=== PATIENT | male | born 1940 | race Caucasian/White ===

== ENCOUNTER → 2016-11-09 | Outpatient (CLI) | payer OTHER, BC | LOC: FIMAGING 09:24 | PROVIDERS: ATTEND Surgery | DX: K21.0 Gastro-esophageal reflux disease with esophagitis (principal) ==

== ENCOUNTER 2017-06-26 16:22 | Observation (INO) | payer OTHER, BC ==
[2017-07-10] MEDS ORDERED: BUPIVACAINE 0.5% 30 ML SDV ONE (06:34)
[2017-07-10] MEDS ORDERED: cefOXitin SODIUM 2 GM in STERILE WATER INJ 21 ML IV ONE (07:27)
[2017-07-10] MEDS ORDERED: fentaNYL 100 MCG/2 ML INJ ONE ×3 (07:28→10:17)
--- NOTE | 2017-07-10 07:28 | PDHPUP ---
History & Physical Update H&P update statement: This history and physical update is based on an assessment of the patient which was completed after admission or registration (within 24 hours), but prior to the surgery/procedure. H&P update: H&P reviewed & patient examined, no change in patient's condition since H&P completed
[2017-07-10] MEDS ORDERED: LR 1,000 ML IV ONE (07:29)
[2017-07-10] MEDS ORDERED: PROPOFOL 200 MG/20 ML VIAL ONE (07:29)
[2017-07-10] MEDS ORDERED: ROCURONIUM 50 MG/5 ML VIAL ONE ×2 (07:30→08:17)
[2017-07-10] MEDS ORDERED: DEXAMETHASONE 4 MG/ML VIAL ONE (07:30)
[2017-07-10] MEDS ORDERED: LIDOCAINE 2% 5 ML SDV ONE (07:30)
[2017-07-10] MEDS ORDERED: ONDANSETRON 4 MG/2 ML VIAL ONE ×2 (07:31→10:24)
--- NOTE | 2017-07-10 07:32 | PDANEPAE ---
ANE Past Medical History - Cardiovascular History Hx Hypertension: No Hx Arrhythmias: No Hx Chest Pain: No Hx Coronary Artery / Peripheral Vascular Disease: No Hx CHF / Valvular Disease: No Hx Palpitations: No - Pulmonary History Hx COPD: No Hx Asthma/Reactive Airway Disease: Yes Hx Recent Upper Respiratory Infection: No Hx Oxygen in Use at Home: No Hx Sleep Apnea: No Sleep Apnea Screening Result - Last Documented: Negative Pulmonary History Comment: exercise and pollutants trigger asthma - Neurologic History Hx Cerebrovascular Accident: No Hx Seizures: No Hx Dementia: No - Endocrine History Hx Diabetes: No - Renal History Hx Renal Disorders: No - Liver History Hx Hepatic Disorders: No - Neurological & Psychiatric Hx Hx Neurological and Psychiatric Disorders: No - Cancer History Hx Cancer: Yes Cancer History Comment: prostate - Congenital Disorder History Hx Congenital Disorders: No - GI History Hx Gastrointestinal Disorders: Yes Gastrointestinal History Comment: reflux - Other Health History Other Health History: none - Chronic Pain History Chronic Pain: No - Surgical History Prior Surgeries: none ANE Review of Systems Review of Systems: - Exercise capacity METS (RN): 4 METS ANE Patient History - Allergies Allergies/Adverse Reactions: No Known Allergies Allergy (Unverified 06/15/17 11:18) - Home Medications Home Medications: Acetaminophen [Tylenol 325mg (*)] 325 mg PO DAILY PRN 06/15/17 [Last Taken 07/03] Budesonide/Formoterol Fumarate [Symbicort 80-4.5 Mcg Inhaler] 2 puffs IH DAILY PRN 06/15/17 [Last Taken 07/10/17 05:00] C/E/Zn/Cu/OM3/DHA/EPA/LUT/ZEAX [Preservision Areds 2 Softgel] 1 each PO BID [Last Taken 07/03/17] Carboxymethylcellulose 1% [Refresh Celluvisc (*)] 1 drop EACHEYE DAILY PRN 06/15 [Last Taken 07/10/17] Cholecalciferol Vit D3 [Vitamin D3 (*)] 1,000 units PO DAILY 06/15/17 [Last Taken 07/03/17] Cyanocobalamin [Vitamin B12 (*)] 1,000 mcg PO DAILY 06/15/17 [Last Taken ] Melatonin [Melatonin 3 MG (*)] 3 mg PO HS 06/15/17 [Last Taken 07/09/17] Methimazole [Tapazole 5MG (*)] 5 mg PO DAILY 06/15/17 [Last Taken 07/10/17 05:00 ] Mirabegron [Myrbetriq] 50 mg PO DAILY14 06/15/17 [Last Taken 07/09/17] Omeprazole 40 mg PO DAILY 06/15/17 [Last Taken 07/10/17 05:00] Tamsulosin HCl [Flomax 0.4 MG (*)] 0.4 mg PO DAILY 06/15/17 [Last Taken 07/09/17 ] Loratadine [Claritin 10 mg] 10 mg PO DAILY PRN 07/10/17 [Last Taken 07/09/17] - NPO status NPO Since - Liquids (Date): 07/09/17 NPO Since - Liquids (Time): 21:00 NPO Since - Solids (Date): 07/09/17 NPO Since - Solids (Time): 19:00 - Anes Hx Anes Hx: no prior problems - Smoking Hx Smoking Status: Former smoker - Family Anes Hx Family Hx Anesthesia Complications: none ANE Labs/Vital Signs - Vital Signs Blood Pressure: 126/89 Heart Rate: 68 Respiratory Rate: 16 O2 Sat (%): 97 Height: 172.72 cm Weight: 67.132 kg ANE Physical Exam - Airway Neck exam: FROM Mallampati Score: Class 1 Mouth exam: normal dental/mouth exam - Pulmonary Pulmonary: no respiratory distress, no rales or rhonchi, clear to auscultation - Cardiovascular Cardiovascular: regular rate and rhythym, no murmur, rub, or gallop - ASA Status ASA Status: II ANE Anesthesia Plan Anesthesia Plan: general endotracheal anesthesia
[2017-07-10] MEDS ORDERED: LIDOCAINE 2% JELLY 5 ML TUBE ONE (07:40)
[2017-07-10] MEDS ORDERED: SURGIFLO MATRIX KIT WITH THROMBIN 8 ML TP ONE (09:24)
[2017-07-10] MEDS ORDERED: PHENYLEPHRINE HCL 100 MCG/ML SYR ONE (09:27)
[2017-07-10] MEDS ORDERED: SUGAMMADEX SODIUM 200 MG/2 ML VIAL IVP ONE (09:27)
[2017-07-10] MEDS ORDERED: MEPERIDINE 25 MG/0.5 ML AMP IVP PRN (09:39)
[2017-07-10] MEDS ORDERED: DEXAMETHASONE 4 MG/ML VIAL IVP PRN (09:39)
[2017-07-10] MEDS ORDERED: PROMETHAZINE HCL 25 MG/ML INJ IVP PRN (09:39)
[2017-07-10] MEDS ORDERED: NALOXONE HCL 0.4 MG/ML INJ IVP PRN (09:39)
[2017-07-10] MEDS ORDERED: LR 500 ML IV PRN (09:39)
[2017-07-10] MEDS ORDERED: ONDANSETRON 4 MG/2 ML VIAL IVP PRN ×2 (09:39→10:04)
--- NOTE | 2017-07-10 10:06 | POSTOPPROG ---
Post Op Note Date of Operation: 07/10/17 Surgeon: Kimo Lake Residential Installer: Dr. Dupree Anesthesiologist: Dr. Colbert Anesthesia: GET(General Endotracheal) Pre-op Diagnosis: GERD Post-op Diagnosis: GERD Procedure: Robotic fundoplication/HH repair Inf/Abcess present in the surg proc area at time of surgery?: No EBL: 50-100
--- NOTE | 2017-07-10 10:11 | POSTANESTH ---
Post Anesthetic Evaluation Cardiovascular Status: Similar to Pre-Op Cond Respiratory Status: Normal, Stable, Similar to Pre-op Cond. Level of Consciousness/Mental Status: Can Participate in Eval, Alert and Oriented Pain Control: Adequate, Prn Tx Ordered Nausea/Vomiting Control: Adequate, Prn Tx Ordered Complications Possibly Related to Anesthesia: None Noted
[2017-07-10] MEDS: fentaNYL 100 MCG/2 ML INJ IVP PRN ×3 (10:19→10:48)
[2017-07-10] MEDS ORDERED: PROMETHAZINE HCL 25 MG/ML INJ ONE (11:09)
--- NOTE | 2017-07-10 12:14 | GOP ---
[f rep st] OPERATIVE REPORT DATE OF OPERATION: 07/10/2017 SURGEON: Jong Lake MD OCCUPATIONAL THERAPY ASSISTANT: Stacey Dupree MD, whose presence was requested by me and medically necessary for the safe and timely completion of the case. ANESTHESIA: General endotracheal anesthesia. ANESTHESIOLOGIST: Matt Colbert MD PREOPERATIVE DIAGNOSIS: Gastroesophageal reflux disease. POSTOPERATIVE DIAGNOSIS: Gastroesophageal reflux disease. PROCEDURE PERFORMED: 1. Da Giovany robotic Remy fundoplication and hiatal hernia repair. 2. Hiatal hernia repair. FINDINGS: The patient had partial fundoplication posteriorly. The patient had a small to moderate hiatal hernia. ESTIMATED BLOOD LOSS: 50 cc INDICATIONS: This is a 76-year-old male with a history of reflux. Risks and benefits of the procedure were discussed with the patient's family and their questions were answered and they wished to proceed. DESCRIPTION OF PROCEDURE: The patient was in the supine position initially. After the induction of adequate general endotracheal anesthesia, the patient was moved to the modified lithotomy position. The patient was then prepped and draped in the standard surgical fashion. Marcaine 0.5% was injected throughout the supraumbilical area for local anesthesia. An 8-mm incision was made and the abdominal wall was elevated. A Veress needle was inserted and after noting proper pressures, the abdomen was insufflated with carbon dioxide. An 8-mm trocar was placed and a camera followed. There was no apparent damage from trocar placement. Four more ports were placed, three 8-mm ports in the upper abdomen and one 5-mm port in the right mid abdomen. These were all placed under direct vision after injecting 0.5% Marcaine for local anesthesia. The robot was then docked without difficulty. Robotic instruments were then used to perform the dissection. The Harmonic scalpel was used to take down the gastrohepatic ligament. Dissection was then carried over the esophagus exposing the right ranjana. The dissection proceeded laterally and the superior portion of the esophagus and the left ranjana were exposed. The vagus nerves were seen and preserved throughout the entire case. Next, the posterior window was opened using blunt dissection and the Harmonic scalpel. Once this window was achieved, attention was turned to the short gastrics. A significant portion of the short gastric vessels was taken down using a Harmonic scalpel. This freed up the fundus in its entirety. The mediastinal dissection was then performed. This was carefully performed using blunt dissection and minimal energy component. Once the entire visible portion of the esophagus was freed and the gastroesophageal junction returned to the abdomen, the repair of the hiatal hernia ensued. Interrupted sutures of 3-0 silk were used to approximate the hiatus posteriorly. Enough room was seen for the esophagus and an instrument tip. The fundus was then brought posteriorly to the esophagus and the wrap performed. Initial suture took bites of stomach, anterior esophagus, and stomach. Care was taken again to avoid the vagus nerve. Two more sutures of 3-0 silk were used to create the wrap inferiorly. This was a loose floppy wrap. No other lesions were identified at this time. Good hemostasis was noted. The robot was then undocked. Trocars were removed under direct vision. The pneumoperitoneum was allowed to escape. The wounds were thoroughly irrigated. The skin at all sites was closed using 4-0 Monocryl in a subcuticular suture. Wounds were sterilely dressed and the patient was returned to the supine position and extubated. The patient was then taken to the PACU in stable condition. COMPLICATIONS: None. DRAINS: None. ADDENDUM: A partial wrap was completed 270 degrees posteriorly. After the crura repair, the fundus was affixed to the crura using 2-0 silk in an interrupted fashion. The wrap was then created by affixing the stomach to the esophagus using 2-0 silk in an interrupted fashion. Due to some bleeding near the left crural branch, the area was infiltrated with Surgiflo. Good hemostasis was noted and no other lesions were identified. /[id number]/MODL MTDD
[2017-07-10] MEDS: LR 1,000 ML IV SCH ×2 (13:01→23:10)
[2017-07-10] MEDS ORDERED: MELATONIN 3 MG TAB PO SCH (21:00)
[2017-07-11] MEDS ORDERED: BUDESONIDE/FORMOTEROL 80/4.5 60 PUFFS/MDI IH PRN (08:16)
[2017-07-11] MEDS ORDERED: NON-FORMULARY NEW DRUG (Loratadine [Claritin 10 Mg] 10 MG) PO PRN (08:16)
[2017-07-11] MEDS ORDERED: CETIRIZINE 10 MG TAB PO PRN (08:25)
[2017-07-11] MEDS ORDERED: OXYCODONE/APAP 5/325 TAB PO PRN (08:26)
[2017-07-11] MEDS ORDERED: ACETAMINOPHEN 325 MG TAB PO PRN (08:26)
[2017-07-11] MEDS ORDERED: TAMSULOSIN HCL 0.4 MG CAP PO SCH (09:00)
--- NOTE | 2017-07-11 10:03 | SOAPPROG ---
SOAP Progress Note Assessment/Plan: Assessment: s/p fundoplication, improving. Clears, po pain meds, ambulate. Dietary/ activity restrictions reviewed, questions answered. Plan: 07/11/17 10:02 Subjective: Patient feels better, pain improved, no N/V. Ambulating, voiding. Objective: Vital Signs Temp Pulse Resp BP Pulse Ox 36.8 C 75 17 120/67 96 07/11/17 08:10 07/11/17 08:10 07/11/17 08:10 07/11/17 08:10 07/11/17 08:10 07/10/17 07/11/17 07/12/17 05:59 05:59 05:59 Intake Total 3413 Output Total 2200 235 Balance 1213 -235 Alert, NAD RRR Abd soft, [employer] C/D/I ICD10 Worksheet Patient Problems: Problems Problem Status Onset GERD (gastroesophageal reflux disease) Acute - ICD10 Problem Qualifiers (1) GERD (gastroesophageal reflux disease)
[2017-07-11 11:59] VITALS: BP 109/63
== END 2017-07-11 13:18 | disposition home or self-care (01) ==
LOC: F3N 07-10 06:02 → F1N 07-10 08:53
PROVIDERS: ADMIT Surgery; ATTEND Surgery
DX: K21.9 Gastro-esophageal reflux disease without esophagitis (principal); K44.9 Diaphragmatic hernia without obstruction or gangrene; M85.80 Other specified disorders of bone density and structure, unspecified site; E03.9 Hypothyroidism, unspecified; Z85.46 Personal history of malignant neoplasm of prostate
CPT/HCPCS: 43280; J0694; J1100; J2270; J2370; J2405; J2550; J2704; J3010